=== PATIENT | female | born 1990 | race Caucasian/White ===

== ENCOUNTER 2021-03-20 22:00 | Inpatient (IN) | payer OTHER ==
[2021-03-20] MEDS ORDERED: ELECTROLYTE-148 SOLN 1,000 ML IV SCH (23:30)
[2021-03-20 23:52] VITALS: BMI 31.1
[2021-03-21] MEDS ORDERED: LIDOCAINE HCL 1% PRESERVATIVE FREE - 30ML VIAL ONE
[2021-03-21] MEDS ORDERED: OXYTOCIN 20 UNITS in 0.9% NS 20 UNIT/1,000 ML INFUS.BAG IV ONE (00:01)
[2021-03-21 00:21] LABS: BASO % 0.2 % (0-2.0); EOS % 0.2 % (0-4.5); HEMATOCRIT 34.8 % (32.4-45.2); HEMOGLOBIN 11.9 GM/dL (10.7-15.3); MCH 31.6 pg (25.7-33.7); MCHC 34.3 g/dl (32.0-36.0); MEAN CELL VOLUME 92.1 fl (80-96); MONO % 6.2 % (3.8-10.2); NEUT % 64.4 % (42.8-82.8); PLATELET COUNT 169 10^3/uL (134-434); RBC 3.78 M/mm3 (3.60-5.2); RDW 14.5 % (11.6-15.6); WHITE BLOOD COUNT 7.9 K/mm3 (4.0-10.0)
[2021-03-21 00:46] LABS: CALCIUM 8.2 mg/dL (8.5-10.1)
[2021-03-21 00:47] LABS: BLOOD UREA NITROGEN 10.5 mg/dL (7-18)
[2021-03-21 00:50] LABS: CREATININE 0.5 mg/dL (0.55-1.3)
[2021-03-21 01:01] LABS: INR 0.85 (0.83-1.09); PROTHROMBIN TIME (PATIENT) 10.3 SEC (9.7-13.0)
[2021-03-21 01:04] LABS: ACTIVATED PTT 24.4 SECONDS (25.2-36.5)
[2021-03-21] MEDS ORDERED: BENZOCAINE 28 GM HEMORRHOIDAL OINTMENT TP PRN (02:01)
[2021-03-21] MEDS ORDERED: WITCH HAZEL 50% (TUCKS) 40 PAD/JAR PAD TP PRN (02:01)
[2021-03-21] MEDS ORDERED: BENZOCAINE 20% 57 GM BOTTLE TP PRN (02:01)
[2021-03-21] MEDS ORDERED: BISACODYL 10 MG SUPP.RECT RC PRN (02:01)
[2021-03-21] MEDS ORDERED: IBUPROFEN 600 MG TABLET (FP) PO ONE (02:07)
[2021-03-21] MEDS ORDERED: ACETAMINOPHEN 325 MG TABLET (FP) ONE (02:07)
[2021-03-21] MEDS: ACETAMINOPHEN 325 MG TABLET (FP) PO PRN ×2 (02:10→09:03)
[2021-03-21] MEDS: IBUPROFEN 600 MG TABLET (FP) PO PRN ×2 (02:10→05:59)
[2021-03-21] MEDS ORDERED: OXYTOCIN 20 UNITS in 0.9% NS 20 UNIT/1,000 ML INFUS.BAG IV SCH (02:15)
[2021-03-22] MEDS: IBUPROFEN 600 MG TABLET (FP) PO PRN (03:02)
[2021-03-22 07:22] LABS: BASO % 0.3 % (0-2.0); EOS % 0.5 % (0-4.5); HEMOGLOBIN 11.1 GM/dL (10.7-15.3); LYMPH % 35.8 % (8-40); MCH 32.2 pg (25.7-33.7); MCHC 34.6 g/dl (32.0-36.0); MEAN CELL VOLUME 92.9 fl (80-96); MONO % 6.8 % (3.8-10.2); NEUT % 56.6 % (42.8-82.8); PLATELET COUNT 144 10^3/uL (134-434); RBC 3.44 M/mm3 (3.60-5.2); RDW 14.9 % (11.6-15.6); WHITE BLOOD COUNT 9.2 K/mm3 (4.0-10.0)
[2021-03-22 08:52] VITALS: BP 108/67; PULSE 97; TEMP 97.4
[2021-03-22] MEDS ORDERED: FLU VACC QS2021-22(6MOS UP)/PF 60 MCG/0.5 ML SYRINGE IM ONE ×2 (10:00→12:00)
[2021-03-22] MEDS ORDERED: SENNOSIDES/DOCUSATE COMBO (SENNA PLUS) TABLET (UD) PO PRN (22:00)
== END 2021-03-22 15:35 | disposition home or self-care (01) | DRG 560 ==
LOC: JDEL 22:00 → JLDR 22:42 → J3W 03-21 03:38
PROVIDERS: ADMIT Student in an Organized Health Care Education/Training Program; ATTEND Student in an Organized Health Care Education/Training Program
PROC: 10E0XZZ Delivery of Products of Conception, External Approach (ICD-10-PCS; principal; 2021-03-21)
DX: O80 Encounter for full-term uncomplicated delivery (principal); Z3A.39 39 weeks gestation of pregnancy; Z37.0 Single live birth
CPT/HCPCS: 36415; 59409; 80048; 85025; 85610; 85730; 86780; 86850; 86900; 86901; 90686; C9803; G0008; U0003; U0005

== ENCOUNTER 2021-09-04 16:13 | Emergency (ER) | payer OTHER ==
[2021-09-04 16:28] VITALS: BP 108/62; PULSE 75; TEMP 9739; BMI 27.0
[2021-09-04] MEDS ORDERED: LIDOCAINE 5% TOPICAL PATCH TP ONE (18:12)
[2021-09-04] MEDS ORDERED: KETOROLAC TROMETHAMINE 30 MG/1 ML VIAL IVPUSH ONE (18:12)
[2021-09-04] MEDS ORDERED: LIDOCAINE 5% TOPICAL PATCH ONE (18:14)
[2021-09-04] MEDS ORDERED: KETOROLAC TROMETHAMINE 30 MG/1 ML VIAL ONE (20:04)
[2021-09-04] MEDS ORDERED: LIDOCAINE PATCH REMOVAL MC SCH (22:00)
== END 2021-09-04 20:58 | disposition home or self-care (01) ==
LOC: JER 16:13
DX: S09.90XA Unspecified injury of head, initial encounter (principal); M54.2 Cervicalgia; M54.50 Low back pain, unspecified; W01.0XXA Fall on same level from slipping, tripping and stumbling without subsequent striking against object, initial encounter
CPT/HCPCS: 70450-TC; 72125-TC; 84703; 99284-25

== ENCOUNTER 2024-11-11 08:55 | Inpatient (IN) | payer OTHER ==
[2024-11-11] MEDS ORDERED: BUTORPHANOL TARTRATE 2 MG/ML VIAL IVPB PRN (09:58)
[2024-11-11] MEDS ORDERED: PROMETHAZINE HCL 25 MG/1 ML VIAL IVPB PRN (09:58)
[2024-11-11 10:11] VITALS: BMI 31.7
[2024-11-11 10:23] LABS: ABSOLUTE IMMATURE GRANULOCYTES 0.02 x10^3/uL (0.0-0.031); BASOPHILS # 0.01 x10^3/uL (0.01-0.08); EOSINOPHIL % 0.2 % (0.7-5.8); EOSINOPHILS # 0.01 x10^3/uL (0.04-0.36); HEMATOCRIT 35.2 % (34.1-44.9); HEMOGLOBIN 11.9 g/dL (11.2-15.7); MCHC 33.8 g/dl (32.2-35.5); MEAN CELL VOLUME 93.1 fl (79.4-94.8); MEAN PLT VOLUME 12.1 fl (9.4-12.3); MONOCYTE # 0.32 x10^3/uL (0.24-0.86); MONOCYTE % 5.1 % (4.7-12.5); PLATELET COUNT 172 x10^3/uL (182-369); RDW 14.1 % (12.1-16.8)
[2024-11-11 10:33] LABS: INR 0.98 (0.83-1.09); PROTHROMBIN TIME (PATIENT) 10.7 SEC (9.7-13.0)
[2024-11-11 10:35] LABS: ACTIVATED PTT 25.8 SECONDS (25.2-36.5)
[2024-11-11 10:42] LABS: POTASSIUM 3.8 mmol/L (3.5-5.1)
[2024-11-11 10:44] LABS: BLOOD UREA NITROGEN 7.2 mg/dL (7-18); CALCIUM 9.2 mg/dL (8.5-10.1)
[2024-11-11 10:48] LABS: CREATININE 0.5 mg/dL (0.55-1.3)
[2024-11-11] MEDS: LACTATED RINGERS SOLUTION 1,000 ML/1,000 ML INFUS.BAG IV SCH (11:01)
[2024-11-11] MEDS ORDERED: OXYTOCIN 20 UNITS in 0.9% NS 20 UNIT/1,000 ML INFUS.BAG IV ONE ×2 (11:13→17:21)
[2024-11-11] MEDS: OXYTOCIN 20 UNITS in 0.9% NS 20 UNIT/1,000 ML INFUS.BAG IV SCH (16:02)
[2024-11-11] MEDS ORDERED: ACETAMINOPHEN INJECTION 100 ML ONE (16:27)
[2024-11-11] MEDS: METHYLERGONOVINE MALEATE 0.2 MG/1 ML AMP IM PRN (16:35)
[2024-11-11] MEDS: ACETAMINOPHEN 1000 MG/100 ML BAG IVPB ONE (16:35)
[2024-11-11 16:48] LABS: CORD BASE EXCESS -4.6 mmol/L (0-2); CORD HCO3 19.6 mmHg (20-29); CORD PCO2 33.8 mmHg (30-78); CORD pH 7.381 (7.14-7.44)
[2024-11-11 16:49] LABS: CORD BASE EXCESS -2.4 mmol/L (0-2); CORD HCO3 23.6 mmHg (20-29); CORD pH 7.338 (7.14-7.44)
[2024-11-11] MEDS ORDERED: oxyCODONE HCL 5 MG TABLET PO PRN (17:01)
[2024-11-11] MEDS ORDERED: WITCH HAZEL 50% (TUCKS) 40 PAD/JAR PAD TP PRN (17:01)
[2024-11-11] MEDS ORDERED: BENZOCAINE 28 GM HEMORRHOIDAL OINTMENT TP PRN (17:01)
[2024-11-11] MEDS ORDERED: BISACODYL 10 MG SUPP.RECT RC PRN (17:01)
[2024-11-11] MEDS ORDERED: BENZOCAINE 20% 57 GM BOTTLE TP PRN (17:01)
[2024-11-11 17:42] VITALS: RESP 18
[2024-11-11] MEDS: IBUPROFEN 600 MG TABLET (FP) PO PRN (19:27)
[2024-11-12 07:00] LABS: ABSOLUTE IMMATURE GRANULOCYTES 0.05 x10^3/uL (0.0-0.031); BASOPHILS # 0.02 x10^3/uL (0.01-0.08); EOSINOPHIL % 0.3 % (0.7-5.8); EOSINOPHILS # 0.04 x10^3/uL (0.04-0.36); HEMATOCRIT 35.7 % (34.1-44.9); MCHC 33.6 g/dl (32.2-35.5); MEAN PLT VOLUME 12.2 fl (9.4-12.3); MONOCYTE # 0.95 x10^3/uL (0.24-0.86); PLATELET COUNT 159 x10^3/uL (182-369); RDW 14.2 % (12.1-16.8)
[2024-11-12] MEDS: FERROUS SO4 325 MG TABLET (FP) PO SCH (07:45)
[2024-11-12] MEDS: PRENATAL VITAMINS W/ FOLIC ACID TABLET (FP) PO SCH (08:59)
[2024-11-12] MEDS: ACETAMINOPHEN 325 MG TABLET (FP) PO PRN (12:26)
[2024-11-12] MEDS ORDERED: SENNOSIDES/DOCUSATE COMBO (SENNA PLUS) TABLET (UD) PO PRN (22:00)
[2024-11-13 11:34] VITALS: BP 100/59; PULSE 70; TEMP 98
== END 2024-11-13 13:20 | disposition home or self-care (01) | DRG 560 ==
LOC: JDEL 08:55 → JLDR 09:40 → J3W 18:01
PROVIDERS: ADMIT Obstetrics & Gynecology; ATTEND Obstetrics & Gynecology
PROC: 10E0XZZ Delivery of Products of Conception, External Approach (ICD-10-PCS; principal; 2024-11-11)
DX: O60.23X0 Term delivery with preterm labor, third trimester, not applicable or unspecified (principal); Z3A.36 36 weeks gestation of pregnancy; Z37.0 Single live birth
CPT/HCPCS: 36415; 36600; 59409; 71046-TC-FY; 80048; 82803; 85025; 85610; 85730; 86780; 86850; 86900; 86901; J0131